=== PATIENT | female | born 1990 | race Caucasian/White ===

== ENCOUNTER 2022-10-23 01:39 | Day surgery (SDC) | payer OTHER, SELFPAY ==
[2022-10-14 15:14] VITALS: BMI 44.4
--- NOTE | 2022-10-14 15:18 | SUR.PREOP ---
Report to the Outpatient Waiting Room, entrance under the green pavilion located off [facility], at time _0630 on date _10/23/22 . Planned Procedure Time: . Time changes happen often and if your time is changed the preop area will call you the afternoon before. - You and your visitor will be asked to self-screen and do not enter if you have any COVID symptoms. - A mask is optional within the hospital at this time. Patients may have clear liquids (water, carbonated beverages, clear teas, apple juice) until 3 hours prior to surgery with a maximum of 20 ounces. - No food from midnight until time of surgery - Infants may have breast milk until 4 hours before surgery, formula 6 hours prior to surgery. - Children will be allowed to drink immediately following surgery. If applicable, please bring a bottle or sippy cup to assist with drinking. Juice, water, soda, and popsicles are readily available. For infants on formula, please bring formula the day of surgery. Pacifiers are allowed. Take the following medications with a SIP of water the morning of surgery: ____n/a DO NOT STOP ANY OF YOUR OTHER PRESCRIPTION MEDICATIONS PRIOR TO SURGERY ?EXCEPT THE FOLLOWING Medications to discontinue per physician ___n/a Date to take last dose__n/a Please no make-up, nail dominican, hairspray, perfume, deodorant, or body powder the day of surgery. No jewelry (including any body piercings) or valuables the day of surgery, leave them at home. Please take a shower or bath the night before, or the morning of, surgery with an antibacterial soap. Wear comfortable, loose fitting clothing. Children are encouraged to wear pajamas. - Jewelry must be removed prior to entering the operating room. Rings and piercings that are not removed may be cut off. - The hospital will not accept responsibility for valuables. - Please leave all valuables, including medications, at home the day of surgery. If you are going home after surgery, a licensed pick up truck driver must drive you home. - NO public transportation without another adult if you receive anesthesia. - We recommend that an adult stay with you for 24 hours following discharge. - We also recommend that you do not drive, make important decision, drink alcoholic beverages, or take any drugs that were not prescribed by your health care provider for at least 24 hours after your discharge time. For Pediatric surgeries, we recommend two adults accompany the child home. Follow any additional instructions given to you from your surgeon. If you or anyone in your household have experienced Covid symptoms in the past week, please notify your surgeon or the nurse liaison at the phone number below for possible testing. Telephone instructions given to marguerite smart and asked if any additional questions and then verbalized understanding. Patient advised to call surgeon office or pre surgery nurse liaison [phone] if any additional questions.
--- NOTE | 2022-10-21 16:27 | P.HP_ITS ---
H&P: HPI History of Present Illness Date/Time: 10/21/22 16:27 Chief Complaint: Pelvic pain and irregular excessive bleeding Narrative: Who is 32 year 0 admitted for a diagnostic laparoscopy/hysteroscopy/di latation curettage. Her complaints are irregular bleeding pelvic pain dyspareunia. She is in a same-sex marriage. She has had a blood workup that was negative. This was followed by ultrasound which was unremarkable. She will undergo laparoscopy/hysteroscopy/D& C. Risks and benefits reviewed including but not exclusive of , aspiration pneumonia, bleeding, transfusion, perforation injury to bowel, bladder, ureters, or other internal organs with need for laparotomy. She received the ACOG handout entitled laparoscopy/hysteroscopy/dilatation curettage respectively. She had all questions answered and asked to proceed [facility] Social History Social History Smoking status: Former smoker Tobacco type: cigarettes Smoking end date: 06/07/19 Additional smoking assessment comments: 1/2 ppd x 18 years cigarettes Alcohol intake: current Drinks per week: 1 Alcohol use details: socially Living arrangements: with family Spiritual care concerns: No Meds Home Medications and Allergies Home Medications Medication Instructions Recorded Confirmed Type No Home Medications 10/14/22 10/14/22 History Allergies Allergy/AdvReac Type Severity Reaction Status Date / Time No Known Allergies Allergy Verified 10/14/22 14:50 Exam Const: General: cooperative, healthy appearing, comfortable and overweight Orientation/consciousness: oriented to person, oriented to place and oriented to time HENMT: Head: normal to inspection Resp: Effort & Inspection: normal respiratory effort Cardio: Rate: regular rate Rhythm: regular rhythm Heart sounds: S1 normal heart sound present and S2 normal heart sound present GI: Inspection: normal to inspection and obesity Auscultation: normal bowel sounds : External Female Exam: normal external appearance Speculum Exam - Vagina: normal appearance of the vagina Speculum Exam - Cervix: normal appearance of the cervix Bimanual exam- vagina & uterus: normal palpation and Uterine tenderness Bimanual Exam- Adnexa, other: tender bilaterally Assessment and Plan Assessment and plan (1) Pelvic pain: Code(s): R10.2 - Pelvic and perineal pain Status: Acute (2) Irregular bleeding: Code(s): N92.6 - Irregular menstruation, unspecified Status: Acute Plan Laparoscopy/hysteroscopy/dilatation and curettage
--- NOTE | 2022-10-22 09:54 | WPDANESEPPF ---
Anes - Initial Pre Proc Eval Procedure: Operation Date: 10/23/22 08:30 Proposed Procedures p Diagnostic Laparoscopy, Hysteroscopy, Dilatation and Curettage - Jose Pollack MD Date/Time: 10/22/22 09:54 Surgeon: Jose Pollack MD Pre Op Diagnosis: pelvic pain, irreg bleeding Patient Data Age: 32 Gender: F Height: 1.8 m Weight: 144.54 kg Allergies Allergy/AdvReac Type Severity Reaction Status Date / Time No Known Allergies Allergy Verified 10/23/22 07:41 Home Medications Medication Instructions Recorded Confirmed Type hydrocodone 5 mg-acetaminophen 325 1 tablet PO Q4H PRN pain #20 tabs 10/23/22 Rx mg tablet Patient hx anesthesia problems: none Family hx anesthesia problems: none Results Review: All pre-operative results and documents have been reviewed as part of the pre-operative evaluation. [facility] Past Medical History Medical History (Updated 10/22/22 @ 09:57 by Amilcar Yost DO) Anxiety Bipolar disorder Depression Endometriosis Social History Social History Smoking status: Former smoker Tobacco type: cigarettes Smoking end date: 06/07/19 Additional smoking assessment comments: 1/2 ppd x 18 years cigarettes Alcohol intake: current Drinks per week: 1 Alcohol use details: socially Living arrangements: with family Spiritual care concerns: No Anes - Eval Final PreProcedure Day of Procedure 10/22/22 09:54 Patient weight: morbidly obese Heart: regular rate and rhythm Lungs: clear to auscultation Airway: Mallampati scale class 1 and special considerations (front top tooth chipped) Neurological: alert and oriented Last oral intake: >/= 8 hours ASA classification: III Emergent: no Anesthetic plan: proceed Anesthesia type and monitoring: general ETT and standard monitoring Results Review: All pre-operative results and documents have been reviewed as part of the pre-operative evaluation. Informed Consent: The patient's anesthetic plan and its attendant risks and benefits were discussed with the patient/family/POA. Questions were solicited and answers provided to the satisfaction of the patient/family/POA.
[2022-10-23] VITALS (7 sets, daily range): BP systolic 127–139; BP diastolic 75–100; PULSE 70–97; RESP 14–21; TEMP 36.1–36.4; O2SAT 96–100
--- NOTE | 2022-10-23 07:11 | WPDHPUPDATE1 ---
History and Physical Update Update Date/Time: 10/23/22 07:11 History and Physical has been reviewed, including an updated exam of the patient. There are NO changes in the patient's condition. Risks, benefits, and alternatives have been discussed and questions answered. Patient agrees to proceed with procedure.
[2022-10-23] MEDS: ACETAMINOPHEN 500 MG TABLET 1000 MG PO (07:18)
[2022-10-23] MEDS: LACTATED RINGERS 1,000 ML 30 ML IV CONT (07:31)
[2022-10-23 07:35] LABS: Hematocrit 40.5 % (37.0-47.0); Hemoglobin 12.7 g/dL (12.0-15.0)
--- NOTE | 2022-10-23 09:24 | P.OP_ITS ---
Procedure Note - Detailed Date of Procedure 10/23/22 Pre-op Diagnosis pelvic pain, irreg bleeding Post-op Diagnosis Other Procedure Performed laparoscopic destruction of endometriosis/hysteroscopy/ dilatation curettage Surgeon Jose Pollack MD Anesthesia General Indications since 32-year-old female with pelvic pain and irregular bleeding Findings on laparoscopy there powder burn blistered endometriosis on the posterior surface of the uterus and the uterosacral ligaments. Normal-appearing ovaries bilaterally. On hysteroscopy uterus sounded to 7cm thick irregular tissue was Description of Procedure patient was placed in dorsal lithotomy position. Under excellent general trach anesthesia weighted speculum placed posterior fornix vagina. Anterior lip of the cervix grasped with a single-tooth tenaculum. These were attached to be used later uterine manipulation. Bladder was emptied of clear urine. The weighted speculum was removed the gloves were changed. An infraumbilical incision made. Veress Veress needle passed in the abdomen. Abdomen filled with CO2 gas to 15mm Hg. 5mm trocar advanced under direct op is 8 visualization with the Optiview. No injury seen. [facility] and a suprapubic incision made. The above findings were seen. The monopolar cautery was placed at 35 w per 2nd and these were individually burned without difficulty. Irrigation undertaken to clear. No other abnormalities were seen. The instruments withdrawn after the gas removed from the abdomen. The abdomen filled was was closed with 4 Monocryl glue. Attention was then turned to the hysteroscopy. The weighted speculum was replaced. At the uterus sounded 8cm. Serial dilatation with fragmented out performed followed by passes the Ada system using normal saline as visualizing medium. Thick irregular endometrial tissue was seen but no evidence of polyps or anything otherwise. The uterus was scraped over 360? removing moderate amount of tissue. When a good grating sound was heard, the instruments removed all were accounted for she went to recovery in satisfactory condition. All sponge, needle, instrument counts were correct. There were no immediate complications Estimated Blood Loss 5 Drains No Packing No Pathology Yes Complications No immediate complications Condition Stable Disposition PACU
[2022-10-23] MEDS: ONDANSETRON INJ 4 MG/2 ML VIAL IV PUSH (09:32)
[2022-10-23] MEDS: KETOROLAC 15 MG/ML VIAL (*BKC) IV PUSH (09:45)
== END 2022-10-23 10:48 | disposition home or self-care (01) ==
PROVIDERS: Visit Provider Obstetrics & Gynecology
PROC: 0UDB8ZZ Extraction of Endometrium, Via Natural or Artificial Opening Endoscopic (ICD-10-PCS; CPT 58558; principal; 2022-10-23 08:30)
DX: N92.1 Excessive and frequent menstruation with irregular cycle (principal); R10.2 Pelvic and perineal pain; N80.00 Endometriosis of the uterus, unspecified; Z87.891 Personal history of nicotine dependence
CPT/HCPCS: 58558; 58662; 36415; 85014; 85018; 86850; 86900; 86901; 88305; A9270; J0330; J1100; J1885; J2250; J2405; J2704; J2710; J3010; J7030; J7120

== ENCOUNTER 2025-02-02 01:33 | Day surgery (SDC) | payer OTHER, SELFPAY ==
[2025-01-23 10:48] VITALS: BMI 43.9
--- NOTE | 2025-01-23 11:06 | PC.NURSE ---
Report to the Outpatient Waiting Room, entrance under the green pavilion located off [facility], at time _0600_ on date _02/02/25_. Planned Procedure Time: _0730__.? Time changes happen often and if your time is changed the preop area will call you the afternoon before. - You and your visitor will be asked to self-screen and do not enter if you have any COVID symptoms. Please call surgeon if you need to reschedule. - A mask is optional within the hospital at this time. Patients may have clear liquids (water, carbonated beverages, clear teas, apple juice) until 3 hours prior to surgery with a maximum of 20 ounces. - No food from midnight until time of surgery and no smoking, or chewing tobacco (or any form of nicotine). No chewing gum, candy or mints. Hold all vitamins and supplements for 3 days per anesthesiologist. Medications to discontinue per physician ___hold spironolactone AM of surgery____ Please no make-up, nail austrian, hairspray, perfume, deodorant, or body powder the day of surgery.? No jewelry (including any body piercings) or valuables the day of surgery, leave them at home.? Please take a shower or bath the night before, or the morning of, surgery with an antibacterial soap.? Wear comfortable, loose fitting clothing.? - Jewelry must be removed prior to entering the operating room.? Rings and piercings that are not removed may be cut off. - The hospital will not accept responsibility for valuables.? - Please leave all valuables, including medications, at home the day of surgery. If you are going home after surgery, a licensed local owner operator truck driver must drive you home.? - NO public transportation without another adult if you receive anesthesia. - We recommend that an adult stay with you for 24 hours following discharge. - We also recommend that you do not drive, make important decision, drink alcoholic beverages, or take any drugs that were not prescribed by your health care provider for at least 24 hours after your discharge time. Follow any additional instructions given to you from your surgeon. Telephone instructions given to __Estefany_ Patient advised to call surgeon office or pre surgery nurse liaison [phone] if any additional questions.
--- NOTE | 2025-01-30 12:56 | PM.IMHP ---
H&P: HPI History of Present Illness Date/Time: 01/30/25 12:56 Chief Complaint: Pelvic pain and history of endometriosis Narrative: 34-year-old female admitted for robotic hysterectomy bilateral salpingectomy secondary to bleeding pain and history of endometriosis. She has severe dyspareunia. She has tried multiple hormonal methods which have been unsuccessful and she refuses any further treatment in such manner. She will undergo robotic hysterectomy and bilateral salpingectomy. Risks and benefits including but not exclusive of , aspiration pneumonia, bleeding, transfusion, perforation injury to bowel, bladder, ureters, or other internal organs with need for laparotomy were all reviewed. She received the ACOG handout entitled hysterectomy as well as the Kellie handout. She had all questions answered. She asked to proceed. Review of Systems Review of Systems: All systems reviewed & are unremarkable except as noted in HPI and below PMFSH Past Medical History Medical History Depression Anxiety Bipolar disorder Endometriosis Social History Social History Smoking packs per day: 1 Smoking cigarettes per day: 20.0 Years smoked: 15 Smoking pack-years: 15.00 Smoking status: Former smoker Tobacco type: cigarettes Smoking end date: 06/07/19 Additional smoking assessment comments: 1/2 ppd x 18 years cigarettes Alcohol intake: current Drinks per week: 1 Alcohol use details: 1-2 times per month Substance use: never Substance use type: does not use Living arrangements: with family Spiritual care concerns: No Meds Home Medications and Allergies Home Medications ?Medication ?Instructions ?Recorded ?Confirmed ?Type spironolactone 50 mg tablet 50 mg PO DAILY acne 01/23/25 01/23/25 History Allergies Allergy/AdvReac Type Severity Reaction Status Date / Time No Known Allergies Allergy Verified 01/23/25 10:46 Exam Const: General: cooperative, healthy appearing and comfortable Nutritional Appearance: obese Orientation/consciousness: oriented to person, oriented to place and oriented to time HENMT: Head: normal to inspection Resp: Effort & Inspection: normal respiratory effort Cardio: Rate: regular rate Rhythm: regular rhythm Heart sounds: S1 normal heart sound present and S2 normal heart sound present GI: Inspection: normal to inspection : External Female Exam: normal external appearance Speculum Exam - Vagina: normal appearance of the vagina Speculum Exam - Cervix: normal appearance of the cervix Bimanual exam- vagina & uterus: enlarged and Uterine tenderness Bimanual Exam- Adnexa, other: normal adnexae Assessment and Plan Assessment and plan (1) Pelvic pain: Code(s): R10.2 - Pelvic and perineal pain Status: Acute (2) Irregular bleeding: Code(s): N92.6 - Irregular menstruation, unspecified Status: Acute Plan Proceed with robotic total vaginal hysterectomy and bilateral salpingectomy
[2025-02-02] VITALS (16 sets, daily range): BP systolic 119–147; BP diastolic 58–92; PULSE 60–104; RESP 16–24; TEMP 35.7–37.1; O2SAT 91–100
--- OUTSIDE RECORDS SUMMARY | 2025-02-02 01:37 | XMS_ITS | Encounter Summary ---
Author Organization [facility] Address [address] [place] [address] Care Team Providers Care Yard Inspector Name Role Phone Tee June MD Primary Care Provid er Encounter Details Date Type Department Care Team (Late st Contact Info) Description 12/16/2004 Outpatient Historical [facility] Childrens Surgery [address] [place] [id number] Christo Aleman Social History Tobacco Use Types Packs/Day Years Used Date Smoking Tobacco: Never Assessed Comments Unknown Sex and Gender Information Value Date Recorded Sex Assigned at Not on file Legal Sex Female 3:51 AM DIRECTOR 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
--- OUTSIDE RECORDS SUMMARY | 2025-02-02 01:37 | XMS_ITS | Encounter Summary ---
Author Organization [facility] Address [address] [place] [address] Attn: Epic Prelude ADT [place] [address] Care Team Providers Care Bevel Polisher Name Role Phone Tee June MD Primary Care Provid er Encounter Details Date Type Department Care Team (Late st Contact Info) Description 06/11/2006 Outpatient Historical Iraida Juárez MD [address] [place] [address] Acute Pharyngitis (Primary Dx) Social History Tobacco Use Types Packs/Day Years Used Date Smoking Tobacco: Never Assessed Comments Unknown Sex and Gender Information Value Date Recorded Sex Assigned at Not on file Legal 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
--- OUTSIDE RECORDS SUMMARY | 2025-02-02 01:37 | XMS_ITS | Encounter Summary ---
Author Organization [facility] Address [address] [facility] Attn: Epic Prelude ADT [place] [address] Care Team Providers Care Data Control Clerk Name Role Phone Tee June MD Primary Care Provid er Encounter Details Date Type Department Care Team (Late st Contact Info) Description 04/19/2001 Outpatient Historical Iraida Juárez MD [address] [place] [address] Social History Tobacco Use Types Packs/Day Years Used Date Smoking Tobacco: Never Assessed Comments Unknown Sex and Gender Information Value Date Recorded Sex Assigned at Not on file Legal Sex Female 3:51 AM JAILKEEPER Gender Identity Not on file Sexual Orientation Not on file documented as of this encounter Plan of Treatment Not on file documented as of this encounter Visit Diagnoses Not on filedocumented in this encounter Care Teams Data Control Clerk Relationship Specialty Start Date End Date Tee June MD PCP - General Internal Medicine 06/24/19 documented as of this encounter
--- OUTSIDE RECORDS SUMMARY | 2025-02-02 01:37 | XMS_ITS | Encounter Summary ---
Author Organization [facility] Address [address] [facility] Attn: [place] [address] Care Team Providers Care Welding Foreman Name Role Phone Tee June MD Primary Care Provid er Encounter Details Date Type Department Care Team (Late st Contact Info) Description 08/26/2005 Outpatient Historical Ronald Gardner MD [address] [phone] Social History Tobacco Use Types Packs/Day Years Used Date Smoking Tobacco: Never Assessed Comments Unknown Sex and Gender Information Value Date Recorded Sex Assigned at Not on file Legal Sex Female 3:51 AM SENSOR SPECIALIST Gender Identity Not on file Sexual Orientation Not on file documented as of this encounter Plan of Treatment Not on file documented as of this encounter Visit Diagnoses Not on filedocumented in this encounter Care Teams Welding Foreman Relationship Specialty Start Date End Date Tee June MD PCP - General Internal Medicine 06/24/19 documented as of this encounter
--- OUTSIDE RECORDS SUMMARY | 2025-02-02 01:37 | XMS_ITS | Encounter Summary ---
Author Organization [facility] Address [address] [facility] Attn: Epic Prelude ADT PA[place] [phone] Care Team Providers Care Machine Fur Cleaner Name Role Phone Tee June MD Primary Care Provid er Encounter Details Date Type Department Care Team (Late st Contact Info) Description 06/28/2002 Outpatient Historical Iraida Juárez MD [address] [place] [address] Social History Tobacco Use Types Packs/Day Years Used Date Smoking Tobacco: Never Assessed Comments Unknown Sex and Gender Information Value Date Recorded Sex Assigned at Not on file Legal 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
--- OUTSIDE RECORDS SUMMARY | 2025-02-02 01:37 | XMS_ITS | Encounter Summary ---
Author Organization [facility] Address [address] [facility] Attn: Epic Prelude ADT [place] [phone] Care Team Providers Care Business English Instructor Name Role Phone Tee June MD Primary Care Provid er Encounter Details Date Type Department Care Team (Late st Contact Info) Description 06/11/2006 Outpatient Historical Iraida Juárez MD [address] [place] [address] Social History Tobacco Use Types Packs/Day Years Used Date Smoking Tobacco: Never Assessed Comments Unknown Sex and Gender Information Value Date Recorded Sex Assigned at Not on file Legal Sex Female 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
--- OUTSIDE RECORDS SUMMARY | 2025-02-02 01:37 | XMS_ITS | Encounter Summary ---
Author Organization [facility] Address [address] [facility] Attn: Epic Prelude ADT [place] [phone] Care Team Providers Care Ems Educator Name Role Phone Tee June MD Primary Care Provid er Encounter Details Date Type Department Care Team (Late st Contact Info) Description 01/18/2001 Outpatient Historical Iraida Juárez MD [address] [place] [address] Social History Tobacco Use Types Packs/Day Years Used Date Smoking Tobacco: Never Assessed Comments Unknown Sex and Gender Information Value Date Recorded Sex Assigned at Not on file Legal Sex Female 3:51 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
--- OUTSIDE RECORDS SUMMARY | 2025-02-02 01:37 | XMS_ITS | Encounter Summary ---
Author Organization [facility] Address [address] [facility] Attn: Epic Prelude ADT PAWANLEEANNA LAINEZ [place] [address] Care Team Providers Care Assembler Adjuster Name Role Phone Tee June MD Primary Care Provid er Encounter Details Date Type Department Care Team (Late st Contact Info) Description 01/04/2001 Outpatient Historical Iraida Juárez MD [address] [place] [address] Social History Tobacco Use Types Packs/Day Years Used Date Smoking Tobacco: Never Assessed Comments Unknown Sex and Gender Information Value Date Recorded Sex Assigned at Not on file Legal Sex Female 3:51 AM RN INTEGRITY Gender Identity Not on file Sexual Orientation Not on file documented as of this encounter Plan of Treatment Not on file documented as of this encounter Visit Diagnoses Not on filedocumented in this encounter Care Teams Assembler Adjuster Relationship Specialty Start Date End Date Tee June MD PCP - General Internal Medicine 06/24/19 documented as of this encounter
--- OUTSIDE RECORDS SUMMARY | 2025-02-02 01:37 | XMS_ITS | Encounter Summary ---
Author Organization [facility] Address [address] [place] [address] Attn: [place] [address] Care Team Providers Care Aerospace Engineer Officer Armament Name Role Phone Tee June MD Primary Care Provid er Encounter Details Date Type Department Care Team (Late st Contact Info) Description 08/08/2003 Outpatient Historical Opal Das MD [address] [place] [address] Social History Tobacco Use Types Packs/Day Years Used Date Smoking Tobacco: Never Assessed Comments Unknown Sex and Gender Information Value Date Recorded Sex Assigned at Not on file Legal Sex Female 3:51 AM SALES PLANNING ANALYST Gender Identity Not on file Sexual Orientation Not on file documented as of this encounter Plan of Treatment Not on file documented as of this encounter Procedures Procedure Name Priority Date/Time Associated Diagnosis Comments CHG HEPATITIS A VACCINE PED ADOL IM 2 DOSE VFC 08/08/2003 12:00 AM SALES PLANNING ANALYST documented in this encounter Visit Diagnoses Not on filedocumented in this encounter Care Teams Aerospace Engineer Officer Armament Relationship Specialty Start Date End Date Tee June MD PCP - General Internal Medicine 06/24/19 documented as of this encounter
--- OUTSIDE RECORDS SUMMARY | 2025-02-02 01:37 | XMS_ITS | Encounter Summary ---
Author Organization [facility] Address [address] [place] [address] Attn: Epic Prelude ADT PAWANLEEANNA [place]INEZ [place] [address] Care Team Providers Care 911 Telecommunicator Name Role Phone Tee June MD Primary Care Provid er Encounter Details Date Type Department Care Team (Late st Contact Info) Description 04/24/2000 Outpatient Historical Alvin Diallo MD NO ADDRESS ON FILE Social History Tobacco Use Types Packs/Day Years Used Date Smoking Tobacco: Never Assessed Comments Unknown Sex and Gender Information Value Date Recorded Sex Assigned at Not on file Legal Sex Female 3:51 AM INVOICE CONTROL CLERK Gender Identity Not on file Sexual Orientation Not on file documented as of this encounter Plan of Treatment Not on file documented as of this encounter Visit Diagnoses Not on filedocumented in this encounter Care Teams 911 Telecommunicator Relationship Specialty Start Date End Date Tee June MD PCP - General Internal Medicine 06/24/19 documented as of this encounter
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
--- OUTSIDE RECORDS SUMMARY | 2025-02-02 01:37 | XMS_ITS | Encounter Summary ---
Author Organization [facility] Address [address] [place] [address] Attn: Epic Prelude ADT PAWANLEEANNA [place]INEZ [place] [address] Care Team Providers Care Ethylene Compressor Operator Name Role Phone Tee June MD Primary Care Provid er Encounter Details Date Type Department Care Team (Late st Contact Info) Description 02/11/2006 Outpatient Historical Iraida Juárez MD [address] [place] [address] Social History Tobacco Use Types Packs/Day Years Used Date Smoking Tobacco: Never Assessed Comments Unknown Sex and Gender Information Value Date Recorded Sex Assigned at Not on file Legal Sex Female 3:51 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
--- OUTSIDE RECORDS SUMMARY | 2025-02-02 01:37 | XMS_ITS | Clinical Summary ---
Author Organization [facility] Address [address] [place] [place] [address] Care Team Providers Care Box Truck Owner Operator Name Role Phone Adi Dowell MD Primary Care Provider Allergies No known active allergies Medications * This document contains information received from the source organization and may not represent a complete record from that organization. predniSONE (DELTASONE) 20 mg tabletIndication s:Subacute cough Take 1 tablet (20 mg) by mouth daily 5 tablet 08/13/2023 Active Active Problems Problem Noted Date Diagnosed Date Moderate episode of recurrent major depressive d isorder 02/14/2023 Assessment & Plan (02/14/2023 2:22 PM CDT): Symptoms improving with lifestyle changes. Denies SI/self-harm behaviors. Symptoms are often responsive to situational stressors. Notes some low mood d/t poor food choices. Has maintained boundaries with her brother Is not interested in medications. Remains focused on lifestyle changes and therapy. First therapy appointment with Katharina Patrick, Mar 01. Snoring 12/14/2022 Assessment & Plan (01/22/2023 7:18 PM CDT): Reports friends and spouse have told her she snores. Has not been evaluated for GANESH. Referral to sleep medicine. Has not scheduled appointment. Assessment & Plan (12/15/2022 5:37 PM CDT): Reports friends and spouse have told her she snores. Has not been evaluated for GANESH. Referral to sleep medicine. Chronic post-traumatic stress disorder (PTSD) Assessment & Plan (02/14/2023 2:22 PM CDT): Reports on going strained relationship with her mom and brother that impacts her mood. Notes continued negative self-talk. Continues to focus on lifestyle changes and is scheduled to begin therapy in February. Assessment & Plan (01/22/2023 7:17 PM CDT): Reports on going strained relationship with her mom and brother that impacts her mood. Notes continued negative self-talk. Continues to focus on lifestyle changes and is scheduled to begin therapy in February. Assessment & Plan (12/15/2022 5:21 PM CDT): Reports on going strained relationship with her mom that impacts her mood. Notes continued negative self-talk. Continues to focus on lifestyle changes and is scheduled to begin therapy in February. Assessment & Plan (11/20/2022 10:49 AM CDT): Has made several lifestyle changes and is setting goals. Working on establishing boundaries with her family Increasing awareness of her emotional/irritable response to external stressors, negative self-talk. PLAN: [facility] for [facility]BT Continue lifestyle changes. Consider medication if symptoms worsen Elevated LFTs 11/13/2022 Prediabetes 10/12/2022 Subclinical hypothyroidism 10/12/2022 Severe episode of recurrent major depressive disorder, without psychotic features 10/12/2022 Assessment & Plan (01/22/2023 7:17 PM CDT): Symptoms improving with lifestyle changes. Denies SI/self-harm behaviors. Symptoms are often responsive to situational stressors. Notes some low mood d/t poor food choices. Has maintained boundaries with her mom, is advocating for self in relationship with sister, establishing boundaries with brother. Ambivalence about these changes. Is not interested in medications. Remains focused on lifestyle changes and therapy. First therapy appointment with Katharina Patrick, Mar 01. Assessment & Plan (12/15/2022 5:33 PM CDT): Symptoms improving with lifestyle changes. Denies SI/self-harm behaviors. Symptoms are often responsive to situational stressors. Notes several weeks of good mood, good energy, and experiencing pleasure prior to interacting with her mom. Is not interested in medications. Remains focused on lifestyle changes and therapy. Assessment & Plan (11/20/2022 10:51 AM CDT): Symptoms improving with lifestyle changes. Denies SI/self-harm behaviors. PLAN: Continue lifestyle changes. Consider medication if symptoms worsen Assessment & Plan (11/05/2022 3:54 PM CDT): Meets criteria for PTSD. Reports current symptoms of lack of pleasure, low self-esteem, and emotional reactivity. She is not interested in medication at this time and does not have a good understanding of the role and function of medication. She is currently attending work, denies SI/self-harm behaviors, has reduced alcohol use, and is making healthy lifestyle changes. Discussed starting therapy, reviewed different modalities including CBT, DBT, and EMDR. Discussed continued effort towards lifestyle changes with goal to begin focusing on sleep hygiene. PLAN: Refer to [facility] for CBT Continue lifestyle changes. Consider medication if symptoms worsen Morbid obesity with body mass index of 40.0-49.9 03/11/2021 10/12/2022 Assessment & Plan (11/13/2022 4:55 PM CDT): now down 20lbs in 2 months with weight watchers. congratulated on success, encouraged continued efforts. discussed avoiding pitfalls/frustration, she set goal of 230 lbs. Discussed medications that can help with weight loss but she is pleased with her current progress and interested in going without it. Immunizations Immunization Administration Dates Next Due DTP 01/12/1992,02/08/1991,1990 ,1990 DTaP 08/25/1995, 2,02/08/1991,1990,0 1990 Hep A, Adult 02/11/2006,08/08/2003 Hep A, Pediatric 02/11/2006,08/08/2003 Hep B Vaccine 08/25/1995,03/03/1995,01/08/1995 Hep B, Unspecified 08/25/1995,03/03/1995, 995 HiB 12/04/1991,02/08/1991,1990 ,1990 Hib (HbOC) 12/04/1991,02/08/1991,1990 ,1990 IPV 08/25/1995,01/12/1992,1990 ,1990 Influenza, Unspecified 07/27/2022 MMR 08/25/1995,12/04/1991 Meningococcal MCV4P (Menactra) 02/20/2008 OPV 08/25/1995,01/12/1992,1990 ,1990 Td, adsorbed 01/11/2016,10/28/2004 Tdap 02/20/2008 Surgical History Surgery Date Site/Laterality Comments APPENDECTOMY N/A Medical History Medical History Date Comments Varicella Covid-19 07/08/2022 GERD (gastroesophageal reflux disease) 2years Alcohol abuse No longer abusing have in the nd st Anxiety late teens Migraines 4 years Menstrual problem 8years Family History Medical History Relation Name Comments Alcohol abuse Brother 1 Dylon Alcohol abuse Brother 2 Sp No Known Problems Brother 3 No Known Problems Brother 4 No Known Problems Brother 5 Alcohol abuse Father Tyron Depression Father Tyron Hyperlipidemia Maternal Grandfather Will Stroke Maternal Grandfather Will Hypertension Maternal Grandmother Beti Arthritis Mother Edith Diabetes Mother Edith Drug abuse Mother Edith Hypertension Mother Edith Obesity Mother Edith Heart attack Mother's Brother Chance No Known Problems Paternal Grandfather No Known Problems Paternal Grandmother Fibroids Sister 1 No Known Problems Sister 2 No Known Problems Sister 3 Breast cancer Neg Hx Colon cancer Neg Hx Relation Name Status Comments Brother 1 Dylon Alive Brother 2 Sp Alive Brother 3 Alive Brother 4 Alive Brother 5 Alive Father Tyron Alive Maternal Grandfather Will Alive Maternal Grandmother Beti Alive Mother Edith Alive Mother's Brother Chance Paternal Grandfather Paternal Grandmother Sister 1 Alive Sister 2 Alive Sister 3 Alive Social History Tobacco Use Types Packs/Day Years Used Date Smoking Tobacco: Former Cigarettes 0.4 18 0 06/07/2000 - 06/07/2018 Vaping Smokeless Tobacco: Never PHQ-2 Answer Date Recorded PHQ-2 Total Score (If total score is 3 or more points, staff should administer the PHQ-9) 4 10/12/2022 Personal Safety Answer Date Recorded Getting School Help Needed Not on file 05/21 Comments Unknown Sex and Gender Information Value Date Recorded Sex Assigned at Not on file Legal Sex Female 4:45 PM LEVER TENDER Gender Identity Not on file Sexual Orientation Not on file 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 Not on file Not on file Obstetrics History Last Filed Vital Signs Vital Sign Reading Time Taken Comments Blood Pressure 122/78 02/12/2023 1:17 PM CDT Pulse 84 02/12/2023 1:17 PM CDT Temperature 36.8 C (98.2 F) 11/13/2022 12:58 PM CDT Respiratory Rate - - Oxygen Saturation 99% 11/13/2022 12:58 PM CDT Inhaled Oxygen Concentration - - Weight 136.1 kg (300 lb) 02/12/2023 1:17 PM CDT Height 180.3 cm (5' 10.98) 02/12/2023 1:17 PM C DT Body Mass Index 41.86 02/12/2023 1:17 PM CDT Plan of Treatment Health Maintenance Due Date Last Done Comments Hepatitis C Screening 1990 HPV Vaccines (1 - 3-dose SCDM series) 2017 Cervical Cancer Screening 02/20/2022 02/20/2021 Depression Screening 10/13/2023 10/12/2022, 10/13/19 Regular Well Visit/Exam 18-64 10/13/2023 10/12/2022, 10/12/2022 Covid-19 Vaccine ( season) 2024 09/11/2020 Influenza Vaccine (#1) 2025 07/27/2022 DTaP/Tdap/Td Vaccine (8 - Td or Tdap) 01/10/2026 01/11/2016, 02/20/2008, 10/28/2004, Additional history exists Hepatitis B Screening Completed 08/25/1995 , 08/25/1995, 03/03/1995, Additional history exists Pneumococcal vaccine <65 Aged Out No longer eligible based on patient's age to complete this topic Procedures Procedure Name Priority Date/Time Associated Diagnosis Comments PAP SMEAR WITH HPV Routine 02/20/2021 from Last 3 Months or Most Recently Relevant to Health Maintenance Results * PAP SMEAR WITH HPV (02/20/2021) HM Pap smear Normal us Historical Provider MD HEALTH MAINTENANCE Final Result from Last 3 Months or Most Recently Relevant to Health Maintenance Insurance [address] [place] [id number] [employer] [address] [place] [id number] [employer] [address] [place] [id number] Care Teams Box Truck Owner Operator Relationship Specialty Start Date End Date Adi Dowell MD [address] [address] PCP - General Internal Medicine 10/01/22
--- OUTSIDE RECORDS SUMMARY | 2025-02-02 01:37 | XMS_ITS | Encounter Summary ---
Author Organization Car reviews [facility] Address [address] [place] [address] Care Team Providers Care Tin Roller Hot Mill Name Role Phone Tee June MD Primary Care Provid er Encounter Details Date Type Department Care Team (Latest Contact Info) Description 12/16/2004 Inpatient Historical HIS PATIENT IN A BED Christo Aleman MD [address] [facility] [address] [place] [address] ABSCESS OF APPENDIX (Primary Dx) Social History Tobacco Use Types Packs/Day Years Used Date Smoking Tobacco: Never Assessed Comments Unknown Sex and Gender Information Value Date Recorded Sex Assigned at Not on file Legal 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 Gender Identity Not on file Sexual Orientation Not on file documented as of this encounter Plan of Treatment Not on file documented as of this encounter Procedures Procedure Name Priority Date/Time Associated Diagnosis Comments CBC WITH DIFFERENTIAL Routine 12/20/2004 9:21 AM CDT CBC WITH DIFFERENTIAL Routine 12/20/2004 9:21 AM CDT CBC WITH DIFFERENTIAL Routine 12/20/2004 9:21 AM CDT BASIC METABOLIC PANEL Routine 12/20/2004 9:21 AM CDT CBC WITH DIFFERENTIAL Routine 12/19/2004 11:00 AM CDT CBC WITH DIFFERENTIAL Routine 12/19/2004 11:00 AM CDT GENTAMICIN LEVEL PEAK Routine 12/18/2004 7:00 AM CDT GENTAMICIN LEVEL TROUGH Routine 12/18/2004 5:45 AM CDT URINALYSIS W/REFLEX MICROSCOPIC Routine 12/16/2004 6:52 PM CDT CBC WITH DIFFERENTIAL Routine 12/16/2004 5:31 PM CDT CBC WITH DIFFERENTIAL Routine 12/16/2004 5:31 PM CDT HCG QUANTITATIVE, BLOOD Routine 12/16/2004 5:31 PM CDT LIPASE Routine 12/16/2004 5:31 PM CDT AMYLASE Routine 12/16/2004 5:31 PM CDT documented in this encounter Results * (ABNORMAL) BASIC METABOLIC PANEL (12/20/2004 9:21 AM CDT) GLUCOSE 104 60 - 110 mg/dL INTERFACE SYSTEM CREATININE 0.5 0.4 - 1.2 mg/dL INTERFACE SYSTEM CALCIUM 8.9 8.4 - 10.2 mg/dL INTERFACE SYSTEM BUN 7 6 - 20 mg/dL INTERFACE SYSTEM SODIUM 135 135 - 145 mmol/L INTERFACE SYSTEM POTASSIUM 3.3(L) 3.5 - 4.9 mmol/L INTERFACE SYSTEM CHLORIDE 98 96 - 108 mmol/L INTERFACE SYSTEM CO2 26 22 - 30 mmol/L INTERFACE SYSTEM 12/20/2004 9:21 AM CDT us Christo Aleman MD CHEMISTRY ORDERABLES Final Res ult INTERFACE SYSTEM Refer to clinic/hospital department * (ABNORMAL) CBC WITH DIFFERENTIAL (12/20/2004 9:21 AM CDT) NEUTROPHIL ABSOLUTE 4.12 K/uL INTERFACE SYSTEM LYMPHOCYTE ABSOLUTE 0.49 K/uL INTERFACE SYSTEM MONOCYTE ABSOLUTE 0.20 K/uL IN TERFACE SYSTEM EOSINOPHIL ABSOLUTE 0.10 K/uL INTERFACE SYSTEM BASOPHILS ABSOLUTE 0.00 K/uL INTERFACE SYSTEM NEUTROPHILS, SEG 81(H) 36 - 74 % INT ERFACE SYSTEM BANDS 3 0 - 4 % INTERFACE SYSTEM LYMPHOCYTES 9(L) 18 - 53 % INTERFAC E SYSTEM MONOCYTES 4 2 - 13 % INTERFACE SYSTEM EOSINOPHILS 2 2 - 12 % INTERFAC E SYSTEM BASOPHILS 0 0 - 3 % INTERFACE SYSTEM ATYPICAL LYMPHOCYTE 1 0 - 5 % INTERFACE SYSTEM PLATELET EST. Normal Normal INTERF PASCALE SYSTEM ANISOCYTOSIS Slight INTERFA CE SYSTEM 12/20/2004 9:21 AM CDT Christo Aleman MD HEMATOLOGY ORDERABLES Final Re sult Performing Organization Address [facility] de Phone Number INTERFACE SYSTEM Refer to clinic/hospital department * CBC WITH DIFFERENTIAL (12/20/2004 9:21 AM CDT) NRBC 0 <=0 /100 WBC INTERFACE SYSTEM 12/20/2004 9:21 AM CDT Christo Aleman MD HEMATOLOGY ORDERABLES Final Re sult Performing Organization Address [facility] de Phone Number INTERFACE SYSTEM Refer to clinic/hospital department * (ABNORMAL) CBC WITH DIFFERENTIAL (12/20/2004 9:21 AM CDT) WBC 4.9 4.0 - 9.8 K/uL INTERFACE SYSTEM RBC 3.97 3.90 - 4.90 M/uL INTERFACE SYSTEM HEMOGLOBIN 11.4(L) 11.8 - 14.8 g/dL INTERFACE SYSTEM HEMATOCRIT 33.7(L) 35.5 - 44.0 % INTERFACE SYSTEM MCV 84.9 82.0 - 99.0 fL INTERFACE SYSTEM MCH 28.7 27.2 - 32.6 pg INTERFACE SYSTEM MCHC 33.8 31.5 - 35.5 % INTERFACE SYSTEM RDW 14.1 11.5 - 14.5 % INTERFACE SYSTEM RDW-STDEV 44.1 37.1 - 48.7 fL INTERFACE SYSTEM PLATELETS 234 140 - 350 K/uL INTERFACE SYSTEM MPV 9.9 9.3 - 12.4 fL INTERFACE SYSTEM 12/20/2004 9:21 AM CDT Christo Aleman MD HEMATOLOGY ORDERABLES Final Re sult Performing Organization Address [facility] de Phone Number INTERFACE SYSTEM Refer to clinic/hospital department * (ABNORMAL) CBC WITH DIFFERENTIAL (12/19/2004 11:00 AM CDT) NEUTROPHILS 79(H) 36 - 74 % INTERFAC E SYSTEM LYMPHOCYTES 11(L) 18 - 53 % INTERFAC E SYSTEM MONOCYTES 8 2 - 13 % INTERFACE SYSTEM EOSINOPHILS 2 2 - 12 % INTERFAC E SYSTEM BASOPHILS 0 0 - 3 % INTERFACE SYSTEM NEUTROPHIL ABSOLUTE 4.39 K/uL INTERFACE SYSTEM LYMPHOCYTE ABSOLUTE 0.63 K/uL INTERFACE SYSTEM MONOCYTE ABSOLUTE 0.45 K/uL INTERFACE SYSTEM EOSINOPHIL ABSOLUTE 0.09 K/uL INTERFACE SYSTEM BASOPHILS ABSOLUTE 0.01 K/uL INTERFACE SYSTEM 12/19/2004 11:0 0 AM CDT Christo Aleman MD HEMATOLOGY ORDERABLES Final Re sult Performing Organization Address [facility] de Phone Number INTERFACE SYSTEM Refer to clinic/hospital department * (ABNORMAL) CBC WITH DIFFERENTIAL (12/19/2004 11:00 AM CDT) WBC 5.6 4.0 - 9.8 K/uL INTERFACE SYSTEM RBC 4.12 3.90 - 4.90 M/uL INTERFACE SYSTEM HEMOGLOBIN 11.5(L) 11.8 - 14.8 g/dL INTERFACE SYSTEM HEMATOCRIT 35.1(L) 35.5 - 44.0 % INTERFACE SYSTEM MCV 85.2 82.0 - 99.0 fL INTERFACE SYSTEM MCH 27.9 27.2 - 32.6 pg INTERFACE SYSTEM MCHC 32.8 31.5 - 35.5 % INTERFACE SYSTEM RDW 14.1 11.5 - 14.5 % INTERFACE SYSTEM RDW-STDEV 44.7 37.1 - 48.7 fL INTERFACE SYSTEM PLATELETS 233 140 - 350 K/uL INTERFACE SYSTEM MPV 10.1 9.3 - 12.4 fL INTERFACE SYSTEM 12/19/2004 11:0 0 AM CDT Christo Aleman MD HEMATOLOGY ORDERABLES Final Re sult Performing Organization Address [facility] Phone Number INTERFACE SYSTEM Refer to clinic/hospital department * GENTAMICIN LEVEL PEAK (12/18/2004 7:00 AM CDT) GENTAMICIN, PEAK 8.1 6.0 - 10.0 ug/mL INTERFACE SYSTEM Comment:Gentamicin Peak Toxi c Level= >12.0 ug/mL 12/18/2004 7:00 AM CDT Christo Aleman MD CHEMISTRY ORDERABLES Final Res ult Performing Organization Address [facility] Phone Number INTERFACE SYSTEM Refer to clinic/hospital department * GENTAMICIN LEVEL TROUGH (12/18/2004 5:45 AM CDT) GENTAMICIN, TROUGH 0.9 0.0 - 2.0 ug/mL INTERFACE SYSTEM Comment:Gentamicin Trough To xic Level = > 2.0 ug/mL 12/18/2004 5:45 AM CDT Christo Aleman MD CHEMISTRY ORDERABLES Final Res ult Performing Organization Address [facility] Phone Number INTERFACE SYSTEM Refer to clinic/hospital department * URINALYSIS (12/16/2004 6:52 PM CDT) COLOR UA Colorless INTERFACE SYSTEM CLARITY UA Clear Clear INTERFACE SYSTEM SPECIFIC GRAVITY UA 1.015 1.001 - 1.035 INTERFACE SYSTEM PH UA 6.0 5.0 - 8.0 INTERFACE SYSTEM LEUKOCYTE ESTERASE UA Negative Negative INTERFACE SYSTEM NITRITE UA Negative Negative INTERFACE SYSTEM PROTEIN UA Negative Negative INTERFACE SYSTEM GLUCOSE UA Negative Negative INTERFACE SYSTEM KETONES UA Negative Negative INTERFACE SYSTEM UROBILINOGEN UA <1 <1 mg/dL INTE RFACE SYSTEM Comment: Effective 11/19/04, Urobilinogen will be reported in mg/dL resulting in a n increased sensitivity at lower urobilinogen levels. Previously, results were reported in Zoey unit(EU)/dL. 1+ results previously reported as 1 EU/dL (normal) will become 2 mg/dL (abnormal). BILIRUBIN UA Negative Negative INTERFA CE SYSTEM BLOOD UA Negative Negative INTERFACE SYSTEM 12/16/2004 6:5 2 PM CDT Maureen Huerta MD URINE ORDERABLES Final Result Performing Organization Address [facility] Phone Number INTERFACE SYSTEM Refer to clinic/hospital department * (ABNORMAL) CBC WITH DIFFERENTIAL (12/16/2004 5:31 PM CDT) NEUTROPHILS 94(H) 36 - 74 % INTERFAC E SYSTEM LYMPHOCYTES 3(L) 18 - 53 % INTERFAC E SYSTEM MONOCYTES 3 2 - 13 % INTERFACE SYSTEM EOSINOPHILS 0(L) 2 - 12 % INTERFAC E SYSTEM BASOPHILS 0 0 - 3 % INTERFACE SYSTEM NEUTROPHIL ABSOLUTE 11.68 K/uL INTERFACE SYSTEM LYMPHOCYTE ABSOLUTE 0.39 K/uL INTERFACE SYSTEM MONOCYTE ABSOLUTE 0.34 K/uL INTERFACE SYSTEM EOSINOPHIL ABSOLUTE 0.00 K/uL INTERFACE SYSTEM BASOPHILS ABSOLUTE 0.01 K/uL INTERFACE SYSTEM 12/16/2004 5:31 PM CDT Result [facility] Maureen Huerta MD HEMATOLOGY ORDERABLES Final R esult Performing Organization Address [facility] Phone Number INTERFACE SYSTEM Refer to clinic/hospital department * (ABNORMAL) CBC WITH DIFFERENTIAL (12/16/2004 5:31 PM CDT) WBC 12.4(H) 4.0 - 9.8 K/uL INTERFACE SYSTEM RBC 4.74 3.90 - 4.90 M/uL INTERFACE SYSTEM HEMOGLOBIN 13.7 11.8 - 14.8 g/dL INTERFACE SYSTEM HEMATOCRIT 40.4 35.5 - 44.0 % INTERFACE SYSTEM MCV 85.2 82.0 - 99.0 fL INTERFACE SYSTEM MCH 28.9 27.2 - 32.6 pg INTERFACE SYSTEM MCHC 33.9 31.5 - 35.5 % INTERFACE SYSTEM RDW 13.6 11.5 - 14.5 % INTERFACE SYSTEM RDW-STDEV 42.7 37.1 - 48.7 fL INTERFACE SYSTEM PLATELETS 251 140 - 350 K/uL INTERFACE SYSTEM MPV 10.6 9.3 - 12.4 fL INTERFACE SYSTEM 12/16/2004 5:31 PM CDT Result [facility] Maureen Huerta MD HEMATOLOGY ORDERABLES Final R esult Performing Organization Address City/[facility]/ZIP Co de Phone Number INTERFACE SYSTEM Refer to clinic/hospital department * HCG QUANTITATIVE, BLOOD (12/16/2004 5:31 PM CDT) HCG QUANT, BLOOD <5 0 - 5 mIU/mL INTERFACE SYSTEM Comment: Result of 5 - 25 mIU/mL is indeterminant for , repeat of test recommemded in 48 hours. Reference Range: Gestational Age: 3 Weeks 5.8 - 71.2 mIU/mL 4 Weeks 9.5 - 750 mIU/mL 5 Weeks 217 - 7138 mIU/mL 6 Weeks 158 - 31,795 mIU/mL 7 Weeks 3697 - 163,563 mIU/mL 8 Weeks 32,065 - 149,571 mIU/mL 9 Weeks 63,803 - 151,410 mIU/mL 10 Weeks 46,509 - 186,977 mIU/mL 12 Weeks 27,832 - 210,612 mIU/mL 14 Weeks 13,950 - 62,530 mIU/mL 15 Weeks 12,039 - 70,971 mIU/mL 16 Weeks 9040 - 56,451 mIU/mL 17 Weeks 8175 - 55,868 mIU/mL 18 Weeks 8099 - 58,176 mIU/mL Heterophile antibodies and other interfering substances in the serum of some patients may cause a false-positive result in this assay. Before making a diagnosis of malignancy or ectopic ,the result of thi s test should be confirmed with a urine HCG test and correlated with other clinical evidence. Results called to peter at 12/16/2004 6:14 PM and read back verified. 12/16/2004 5:31 PM CDT us Maureen Huerta MD CHEMISTRY ORDERABLES Final Re sult INTERFACE SYSTEM Refer to clinic/hospital department * (ABNORMAL) LIPASE (12/16/2004 5:31 PM CDT) LIPASE 12(L) 13 - 60 U/L INTERFAC E SYSTEM 12/16/2004 5:31 PM CDT Maureen Huerta MD CHEMISTRY ORDERABLES Final Re sult Performing Organization Address City/[facility] de Phone Number INTERFACE SYSTEM Refer to clinic/hospital department * AMYLASE (12/16/2004 5:31 PM CDT) AMYLASE 31 28 - 100 U/L INTERFACE SYSTEM 12/16/2004 5:31 PM CDT Maureen Huerta MD CHEMISTRY ORDERABLES Final Re sult Performing Organization Address [facility] Phone Number INTERFACE SYSTEM Refer to clinic/hospital department documented in this encounter Visit Diagnoses Diagnosis Acute appendicitis with peritoneal abscess- Primary documented in this encounter Care Teams Tin [employer]ler [employer] Mill Relationship Specialty Start Date End Date Tee June MD PCP - General Internal Medicine 06/24/19 documented as of this encounter
--- OUTSIDE RECORDS SUMMARY | 2025-02-02 01:37 | XMS_ITS | Encounter Summary ---
Author Organization [facility] Address 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
--- OUTSIDE RECORDS SUMMARY | 2025-02-02 01:37 | XMS_ITS | Encounter Summary ---
Author Organization [facility] Address [address] [place] [address] Attn: Epic Prelude ADT [place] [address] Care Team Providers Care Cold Reduction Roller Name Role Phone Tee June MD Primary Care Provid er Encounter Details Date Type Department Care Team (Late st Contact Info) Description 10/28/2004 Outpatient Historical Iraida Juárez MD [address] [place] [address] Social History Tobacco Use Types Packs/Day Years Used Date Smoking Tobacco: Never Assessed Comments Unknown Sex and Gender Information Value Date Recorded Sex Assigned at Not on file 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
--- OUTSIDE RECORDS SUMMARY | 2025-02-02 01:37 | XMS_ITS | Encounter Summary ---
Author Organization [facility] Address [address] [facility] Attn: Epic Prelude ADT [place] [address] Care Team Providers Care System Controller Name Role Phone Tee June MD Primary Care Provid er Encounter Details Date Type Department Care Team (Late st Contact Info) Description 12/16/2004 Outpatient Historical Iraida Juárez MD [address] [place] [address] Social History Tobacco Use Types Packs/Day Years Used Date Smoking Tobacco: Never Assessed Comments Unknown Sex and Gender Information Value Date Recorded Sex Assigned at Not on file 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
--- OUTSIDE RECORDS SUMMARY | 2025-02-02 01:37 | XMS_ITS | Patient Health Record ---
Author Organization [facility] Address [address] [place] [address] Support Name Relationship Address Phone DYLON GONZALEZ Emergency Contact [address] [place] [address] [place] [address] LENNY NYE Guarantor Unknown [phone] Reason For Referral No Information Medications Medication SIG (Take, Route, Fr equency, Duration) Notes Start Date End Date Status Omeprazole 20 MG 1 capsule Orally Once a day Active NexIUM 40 MG 1 capsule Orally Onc e a day; Duration: 30 day(s) 02/12/2014 Active Social History Tobacco Use: Social History Observation Description Date Details (start date - stop date) Former Smoker NA - NA Tobacco Use/Smoking Question Answer Notes Are you a former smoker Problems Problem Type SNOMED Code ICD Code Onset Dates Problem Status W/U Status Risk Notes Problem Disorder of joint of ankle and/or foot (866460191) Other specified arthropathy, 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) Active confirmed Problem Verruca vulgaris (04977967) Viral wart, unspecified (B07.9) Active confirmed Problem Candidal vulvovaginitis (12548106) Candidiasis of vulva and vagina (B37.3) Active confirmed Problem Gastro-esophageal reflux disease without esophagitis (003611455) Gastro-esophage al reflux disease without esophagitis (K21.9) Active confirmed Problem Body mass index 40+ - severely obese (681851228) Body mass index (BMI) 40.0-44.9, adult (Z68.41) Active confirmed Plan Of Treatment Pending Test Test Name Order Date Urinalysis, Complete 02/12/2014 CBC With Differential/Platelet 4 Stool Culture 02/12/2014 Comp. Metabolic Panel (14) 02/12/2014 Insurance Providers Payer Name Payer Address Payer Phone Subscriber Number Group Number Insured Name Patient Relationship to Insured Coverage Start Date Coverage End Date [facility] [address] [address] [place] [address] [id number] LENNY NYE Self - patient is the insured Medical (General) History Medical History History ICD Code Gastro-esophageal reflux disease without esophagitis Gastro-esophageal reflux disease without esophagitis Candidiasis of vulva and vagina Viral wart, unspecified Surgical History Surgery Date(Month/Year) appendectomy
--- NOTE | 2025-02-02 06:44 | WPDANESEPPF ---
Anes - Initial Pre Proc Eval Procedure: Operation Date: 02/02/25 07:30 Proposed Procedures p Robotic Assisted Total Vaginal Hysterectomy with Bilateral Salpingectomy - Jose Pollack MD Date/Time: 02/02/25 06:44 Surgeon: Jose Pollack MD Pre Op Diagnosis: pain, endometriosis dyspareunia Patient Data Age: 34 Gender: F Height: 1.83 m Weight: 147 kg Allergies Allergy/AdvReac Type Severity Reaction Status Date / Time No Known Allergies Allergy Verified 02/02/25 06:31 Home Medications ?Medication ?Instructions ?Recorded ?Confirmed ?Type spironolactone 50 mg tablet 50 mg PO DAILY acne 01/23/25 02/02/25 History Patient hx anesthesia problems: none Family hx anesthesia problems: none Results Review: All pre-operative results and documents have been reviewed as part of the pre-operative evaluation. [facility] Past Medical History Medical History Depression Anxiety Bipolar disorder Endometriosis Social History Social History Smoking packs per day: 1 Smoking cigarettes per day: 20.0 Years smoked: 15 Smoking pack-years: 15.00 Smoking status: Former smoker Tobacco type: cigarettes Smoking end date: 06/07/19 Additional smoking assessment comments: 1/2 ppd x 18 years cigarettes Alcohol intake: current Drinks per week: 1 Alcohol use details: 1-2 times per month Substance use: never Substance use type: does not use Living arrangements: with family Spiritual care concerns: No Anes - Eval Final PreProcedure Day of Procedure 02/02/25 06:44 Patient weight: morbidly obese Heart: regular rate and rhythm Lungs: decreased breath sounds Airway: Mallampati scale class II Neurological: alert and oriented Last oral intake: >/= 8 hours ASA classification: III Emergent: no Anesthetic plan: proceed Anesthesia type and monitoring: general ETT and standard monitoring Results Review: All pre-operative results and documents have been reviewed as part of the pre-operative evaluation. Informed Consent: The patient's anesthetic plan and its attendant risks and benefits were discussed with the patient/family/POA. Questions were solicited and answers provided to the satisfaction of the patient/family/POA.
[2025-02-02] MEDS: ACETAMINOPHEN 500 MG TABLET 1000 MG PO ×3 (06:45→18:43)
--- NOTE | 2025-02-02 06:47 | WPDHPUPDATE1 ---
History and Physical Update Update Date/Time: 02/02/25 06:47 History and Physical has been reviewed, including an updated exam of the patient. There are NO changes in the patient's condition. Risks, benefits, and alternatives have been discussed and questions answered. Patient agrees to proceed with procedure.
[2025-02-02] MEDS: LACTATED RINGERS 1,000 ML 30 ML IV CONT ×2 (06:50→08:54)
[2025-02-02] MEDS: KETOROLAC 15 MG/ML VIAL (*BKC) IV PUSH (07:00)
[2025-02-02 07:01] LABS: Hematocrit 39.6 % (37.0-47.0); Hemoglobin 12.1 g/dL (12.0-15.0); Immature Granulocyte Percent A 0.7 % (0-0.5); Lymphocytes Absolute Auto 1.81 K/mm3 (0.9-3.2); Mean Corpuscular HGB Conc 30.6 g/dl (32-36); Mean Corpuscular Hemoglobin 24.7 pg (26-34); Mean Corpuscular Volume 81.0 fl (80-100); Nucleated Red Blood Cells Absolute Auto 0.000 K/mm3 (0.0-0.012); Nucleated Red Blood Cells Perc 0.0 % (0.0-0.2); Platelet Count Result 305 k/mm3 (150-375); Red Blood Count 4.89 M/mm3 (4.2-5.4); White Blood Count 7.3 K/mm3 (4.5-10.0)
[2025-02-02 07:26] LABS: BEDSIDEPREGUCG Negative (Negative)
[2025-02-02] MEDS: ceFAZolin 3 GM/D5W 100 ML 100 ML IVPB (07:26)
--- NOTE | 2025-02-02 08:05 | S_PTH ---
PATIENT: Estefany Curtis LOC: [facility] U#:[id number] AGE/SX: 34/F ROOM: RE02/02/[address]: Jose Pollack MD : 1990 BED: DIS: 02/03/2025 SPEC #: [id number] RECD: 02/02/25 10:40 STATUS: ADRI REQ #: [id number] FRANCI: 02/02/25 08:[address]: Jose Spears DEPT: [facility] Surgical RECD BY: Meggan Chávez Tissues: A - Uterus Procedures: Hematoxylin and Eosin Stain Gross and Microscopic Level 5
--- NOTE | 2025-02-02 08:27 | P.OP_ITS ---
Procedure Note - Detailed Date of Procedure 02/02/25 Pre-op Diagnosis pain, endometriosis dyspareunia Post-op Diagnosis Same Procedure Performed Robotic total vaginal hysterectomy bilateral salpingectomy and destruction of endometriosis Surgeon Jose Pollack MD Anesthesia General Indications 34-year-old female with intractable pelvic pain Findings Normal-appearing ovaries tubes. Endometriosis along right sidewall Description of Procedure The patient was prepped draped in the normal sterile fashion placed in the dorsal lithotomy position. Excellent general trach anesthesia weighted speculum placed posterior anterior lip of the cervix was then grasped with a single-tooth tenaculum uterus sounded to 7cm. Serial dilatation with fragmented dilators performed followed by passage of the 6. BELKYS 2. 0.5 cold cup. The weighted speculum the single-tooth removed. A 16 Haitian catheter was placed in the bladder drained of clear urine. The gloves were changed. A supraumbilical incision made the Veress needle passed in the abdomen. Abdomen filled with CO2 gas [id number]. The 8mm trocar was advanced the abdomen. Downside visualized no injury seen. Patient placed in 19? Trendelenburg and right left lateral quadrant incision made. The 8mm trocars advanced under direct visualization assuring no injury. Right upper quadrant incision made the 8mm trocar advanced under direct visualization again assuring no injury. The robot was docked. Attention was turned to the console. The left round ligament grasped, burned, cut. Anterior bladder flap was formed by sharply dissecting the peritoneum and retracting this for caudally away from the cervix uterus the opposite round ligament which was clamped, burned, cut. Next the fallopian tube was sharply dissected away from the ovarian complex on the left and left attached at its uterine origin. In similar fashion on the right. The fallopian tube was sharply dissected away from the ovarian complex and left attached to its uterine, origin. The utero-ovarian ligament on the left was skeletonized to conserve the left ovary this was clamped, burned, cut this was brought to level of previous cut right a similar fashion on the right conserving the right ovary, the utero-ovarian ligament was clamped, burned, cut and brought to level of previously cut round ligament. The cardinal broad ligaments on the left were then serially skeletonized clamping burning cutting and hugging the cervix uterus until the uterine vessels could be seen on the left these were large and tortuous and individually clamped, burned, cut. In similar fashion on the right the cardinal broad ligaments were serially skeletonized clamping burning cutting and hugging the cervix uterus until the large uterine vessels could be seen on the right these were individually clamped, burned, cut. As a colpotomy incision was made the cervix uterus and tubes removed through the vagina. Small areas of minimal endometriosis seen along the right lateral sidewall these were sharply burned with the scissors. The vagina was then closed with continuous running 0V lock from lateral edge to lateral edge back to the midline. Irrigation undertaken until clear and [place] term placed on raw surface areas. QBL was 25cc. Hemostasis was assured the robot was undocked. The gas removed from the abdomen. The trocars removed the incisions closed with 4-0 Monocryl and glue. The patient was awakened went to recovery in satisfactory condition. All sponge, needle, instrument counts were correct. There were no immediate complications Estimated Blood Loss 25 Drains No Packing No Pathology Yes Complications No immediate complications Condition Stable Disposition PACU
--- NOTE | 2025-02-02 08:32 | P.DS_ITS ---
DS: Admitting Diagnosis Discharge Date 02/03/2025 Admitting Diagnosis Endometriosis/pelvic pain DS: Discharge Diagnosis Discharge Diagnosis (1) Pelvic pain: Code(s): R10.2 - Pelvic and perineal pain Status: Acute (2) Endometriosis: Code(s): N80.9 - Endometriosis, unspecified Status: Acute (3) Irregular bleeding: Code(s): N92.6 - Irregular menstruation, unspecified Status: Acute DS: Summary Hospital Course Reason for hospitalization: The patient underwent robotic total vaginectomy bilateral salpingectomy and destruction of endometriosis on 02/02/2025. Hospital Course: Patient's hospital course unremarkable. She remained afebrile. She was up, voiding without difficulty, eating regular diet, ambulating, and generally without complaints. Time Spent with Patient Time attestation: Total time spent providing and/or coordinating discharge services: Exam Const: General: cooperative, healthy appearing and comfortable Nutritional Appearance: obese Orientation/consciousness: oriented to person, oriented to place and oriented to time HENMT: Head: normal to inspection Resp: Effort & Inspection: normal respiratory effort Cardio: Rate: regular rate Rhythm: regular rhythm Heart sounds: S1 normal heart sound present and S2 normal heart sound present GI: Inspection: normal to inspection and incision (Wounds are clean dry and i ntact) DS: Data Data Completed and Pending Pending studies at discharge: Pending at discharge 02/02/25 08:05 Surgical [PTH] Routine Labs on day of discharge: Labs from last 24 hours 02/02/25 02/02/25 06:55 06:24 WBC 7.3 RBC 4.89 Hgb 12.1 Hct 39.6 MCV 81.0 MCH 24.7 L MCHC 30.6 L RDW 15.6 H Plt Count 305 MPV 9.8 Immature Gran % (Auto) 0.7 H Neut % (Auto) 66.1 Lymph % (Auto) 25.0 [place] % (Auto) 6.6 Eos % (Auto) 1.2 Baso % (Auto) 0.4 Lymph # (Auto) 1.81 [place] # (Auto) 0.5 Eos # (Auto) 0.1 Baso # (Auto) 0.0 Abs Immat Gran (auto) 0.05 H Absolute Neuts (auto) 4.8 Absolute Nucleated RBC 0.000 Nucleated RBC % 0.0 POC Urine HCG, Qual Negative Blood Type A Positive Antibody Screen Negative Discharge Plan Discharge Patient Disposition: Home Patient Language: Filipino Stand Alone Forms: General Discharge Instructions Follow-up/Referrals: Jose Spears MD [Physician, [employer] MACHINE OPERATOR] Discharge Medications: New hydrocodone-acetaminophen 5-325 mg tablet 1 tablet PO Q4H PRN (Reason: pain) Qty: 20 0RF Continued spironolactone 50 mg tablet 50 mg PO DAILY
[2025-02-02] MEDS: fentaNYL CITRATE INJ (*CRX) 100 MCG/2 ML VIAL 25 MCG IV PUSH ×3 (09:27→09:55)
--- NOTE | 2025-02-02 10:20 | SUR.PHASEI ---
1011: This RN tried to call report but floor RN was unavailable.
--- NOTE | 2025-02-02 10:53 | PC.NURSE ---
This patient, Estefany Curtis, was received from PACU on 02/02/25 at 1053. Patient/family oriented to unit policies and routines
[2025-02-02] MEDS: KETOROLAC 30 MG/ML VIAL (*BKC) IV PUSH ×2 (12:23→18:44)
[2025-02-02] MEDS: SIMETHICONE 80 MG TAB.CHEW PO ×2 (12:25→18:44)
[2025-02-02] MEDS: DOCUSATE SODIUM 100 MG CAPSULE PO ×2 (12:26→18:43)
[2025-02-03 00:35] VITALS: BP 113/73; PULSE 84; RESP 16; TEMP 36.4; O2SAT 97
[2025-02-03] MEDS: KETOROLAC 30 MG/ML VIAL (*BKC) IV PUSH (00:37)
[2025-02-03] MEDS: ACETAMINOPHEN 500 MG TABLET 1000 MG PO ×2 (00:37→06:48)
[2025-02-03 03:45] VITALS: BP 112/76; PULSE 91; RESP 16; TEMP 36.4; O2SAT 100
[2025-02-03 04:04] LABS: Hematocrit 35.8 % (37.0-47.0); Hemoglobin 11.0 g/dL (12.0-15.0); Immature Granulocyte Percent A 0.6 % (0-0.5); Lymphocytes Absolute Auto 1.28 K/mm3 (0.9-3.2); Mean Corpuscular HGB Conc 30.7 g/dl (32-36); Mean Corpuscular Hemoglobin 24.9 pg (26-34); Mean Corpuscular Volume 81.2 fl (80-100); Nucleated Red Blood Cells Absolute Auto 0.000 K/mm3 (0.0-0.012); Nucleated Red Blood Cells Perc 0.0 % (0.0-0.2); Platelet Count Result 333 k/mm3 (150-375); Red Blood Count 4.41 M/mm3 (4.2-5.4); White Blood Count 15.4 K/mm3 (4.5-10.0)
[2025-02-03] MEDS: ENOXAPARIN 40 MG/0.4 ML SYRINGE SUB-Q (06:47)
[2025-02-03] MEDS: DOCUSATE SODIUM 100 MG CAPSULE PO (06:48)
[2025-02-03] MEDS: SIMETHICONE 80 MG TAB.CHEW PO (06:48)
[2025-02-03] MEDS: IBUPROFEN 600 MG TABLET PO (06:48)
[2025-02-03 08:23] VITALS: BP 120/51; PULSE 78; RESP 16; TEMP 36.4; O2SAT 96
--- NOTE | 2025-02-03 08:52 | P.PNAN_ITS ---
Anes - Prog Note Post-Op Date/Time: 02/03/25 08:52 Cardiovascular status: normal Respiratory status: normal Airway patency: baseline Mental status: baseline Post-Op hydration status: normal Vital Signs: Last Vital Signs Temp 97.6 F 02/03/25 08:23 Pulse 78 02/03/25 08:23 Resp 16 02/03/25 08:23 BP 120/51 L 02/03/25 08:23 Pulse Ox 96 02/03/25 08:23 O2 Del Method Room Air 02/03/25 03:45 O2 Flow Rate 1.0 02/02/25 21:30 Pain Score (VAS): 6 I/O: Intake & Output 02/02/25 02/03/25 02/03/25 23:59 07:59 15:59 Intake Total 1920 720 Output Total 950 Balance 970 720 Laboratory Tests 02/03/25 03:47 02/03/25 03:47 WBC 15.4 H RBC 4.41 Hgb 11.0 L Hct 35.8 L MCV 81.2 MCH 24.9 L MCHC 30.7 L RDW 15.5 H Plt Count 333 MPV 9.6 Immature Gran % (Auto) 0.6 H Neut % (Auto) 87.3 H Lymph % (Auto) 8.3 L [place] % (Auto) 3.7 Eos % (Auto) 0.0 Baso % (Auto) 0.1 L Lymph # (Auto) 1.28 [place] # (Auto) 0.6 Eos # (Auto) 0.0 Baso # (Auto) 0.0 Abs Immat Gran (auto) 0.09 H Absolute Neuts (auto) 13.5 H Absolute Nucleated RBC 0.000 Nucleated RBC % 0.0 Post-procedural complaints: none Patient Feedback: Patient satisfied with anesthetic care. pt rating pain 5-6 but insistent she does not wish to receive narcotics for pain management. states she is satisfied with the relief from the non narcotic meds she is receiving
--- NOTE | 2025-02-03 10:10 | P.PNOB_ITS ---
VENDING STAND SUPERVISOR - A/P Postoperative Procedures: Procedures Operation Date: 02/02/25 07:30 Actual Procedure Side Surgeon p Robotic Assisted Total Vaginal Hysterectomy with Bilateral Salpingectomy Bilateral Jose Pollack MD Postoperative day: 1 Postoperative status: doing well Postoperative plan: routine post-op care, discharge and other (rec iron for 6 wks) Time Spent With Patient Time: Total time spent is greater than 50% in coordination of care (as documented) at patient's floor/unit and/or counseling patient: Time with patient: less than 15 minutes VENDING STAND SUPERVISOR- PN:Subj Post-Op Subjective Date/time seen: 02/03/25 10:10 Subjective: patient has no complaints, pain is well controlled and patient is tolerating oral intake Exam 2 Narrative: incisions c/d/i abdomen soft, nt, nd VENDING STAND SUPERVISOR - PN: Obj Data Vital Signs Vital Signs: Vital Signs - 24 hr 02/02/25 10:15 02/02/25 10:30 02/02/25 10:55 Temperature 98.8 F Pulse Rate 96 95 96 Respiratory Rate 20 22 H 16 Blood Pressure 139/84 145/92 H 130/69 Pulse Oximetry 93 92 94 Oxygen Delivery Nasal Cannula Nasal Cannula Oxygen Flow Rate 5 5 02/02/25 11:00 02/02/25 16:00 02/02/25 16:00 Temperature 97.3 F L Pulse Rate 104 H Respiratory Rate 16 Blood Pressure 119/62 Pulse Oximetry 95 96 96 Oxygen Delivery Nasal Cannula Nasal Cannula Oxygen Flow Rate 4.0 3.0 02/02/25 19:40 02/02/25 19:40 02/02/25 20:20 Temperature 98.1 F Pulse Rate 92 Respiratory Rate 16 Blood Pressure 124/58 L Pulse Oximetry 100 100 99 Oxygen Delivery Nasal Cannula Nasal Cannula Oxygen Flow Rate 3.0 2.0 02/02/25 21:30 02/02/25 23:00 02/03/25 00:35 Temperature 97.5 F L Pulse Rate 84 Respiratory Rate 16 Blood Pressure 113/73 Pulse Oximetry 97 97 97 Oxygen Delivery Nasal Cannula Room Air Oxygen Flow Rate 1.0 02/03/25 00:35 02/03/25 03:45 02/03/25 03:45 Temperature 97.6 F Pulse Rate 91 Respiratory Rate 16 Blood Pressure 112/76 Pulse Oximetry 97 100 100 Oxygen Delivery Room Air Room Air Oxygen Flow Rate 02/03/25 08:23 Temperature 97.6 F Pulse Rate 78 Respiratory Rate 16 Blood Pressure 120/51 L Pulse Oximetry 96 Oxygen Delivery Oxygen Flow Rate Intake/Output Intake/Output: Intake & Output 01/31/25 02/01/25 02/02/25 02/03/25 23:59 23:59 23:59 23:59 Intake Total 3020 720 Output Total 1070 Balance 1950 720 Meds/Results Medications: Active Medications Generic Name Dose Route Start Last Admin Trade Name Freq PRN Reason Stop Dose Admin Acetaminophen 1,000 mg 02/02/25 12:00 02/03/25 06:48 Acetaminophen 500 Mg Tablet PO 1,000 mg Q6HR JUSTICE Administration Docusate Sodium 100 mg 02/02/25 10:46 02/03/25 06:48 Docusate Sodium 100 Mg Capsule PO 100 mg BID JUSTICE Administration Enoxaparin Sodium 40 mg 02/02/25 10:46 02/03/25 06:47 Enoxaparin 40 Mg/0.4 Ml Syringe SUB-Q 40 mg DAILY JUSTICE Administration Ibuprofen 600 mg 02/03/25 06:00 02/03/25 06:48 Ibuprofen 600 Mg Tablet PO 600 mg Q6HR JUSTICE Administration Naloxone HCl 0.1 mg 02/02/25 10:46 Naloxone Hcl 0.4 Mg/Ml Vial IV PUSH Q2M PRN Respiratory rate less than 10 Ondansetron HCl 4 mg 02/02/25 10:46 Ondansetron Inj 4 Mg/2 Ml Vial IV PUSH Q6H PRN Nausea And Vomiting Oxycodone HCl 5 mg 02/02/25 10:46 Oxycodone Hcl (*Crx) 5 Mg Tab Ir PO Q4H PRN Pain Rated 4-6 Oxycodone HCl 10 mg 02/02/25 10:46 Oxycodone Hcl (*Crx) 5 Mg Tab Ir PO Q6H PRN Pain Rated 7-10 Simethicone 80 mg 02/02/25 12:00 02/03/25 06:48 Simethicone 80 Mg Tab.Chew PO 80 mg TIDWM JUSTICE Administration Labs 02/03/25 03:47 Labs: Laboratory Results - last 24 hr 02/03/25 03:47 WBC 15.4 H RBC 4.41 Hgb 11.0 L Hct 35.8 L MCV 81.2 MCH 24.9 L MCHC 30.7 L RDW 15.5 H Plt Count 333 MPV 9.6 Immature Gran % (Auto) 0.6 H Neut % (Auto) 87.3 H Lymph % (Auto) 8.3 L [place] % (Auto) 3.7 Eos % (Auto) 0.0 Baso % (Auto) 0.1 L Lymph # (Auto) 1.28 [place] # (Auto) 0.6 Eos # (Auto) 0.0 Baso # (Auto) 0.0 Abs Immat Gran (auto) 0.09 H Absolute Neuts (auto) 13.5 H Absolute Nucleated RBC 0.000 Nucleated RBC % 0.0
== END 2025-02-03 10:43 | disposition home or self-care (01) ==
LOC: ANHSURGERY 06:47 → ANHOB2 10:51
PROVIDERS: Visit Provider Obstetrics & Gynecology
PROC: (CPT 58552; principal; 2025-02-02 07:30)
DX: N80.351 Endometriosis of the right pelvic sidewall, unspecified depth (principal); F41.9 Anxiety disorder, unspecified; F31.9 Bipolar disorder, unspecified; E66.01 Morbid (severe) obesity due to excess calories; Z68.41 Body mass index [BMI] 40.0-44.9, adult; Z87.891 Personal history of nicotine dependence
CPT/HCPCS: 58552; 58662; S2900; 36415; 85025; 86850; 86900; 86901; 88307; 99199; A9270; J0690; J1100; J1171; J1650; J1885; J2003; J2250; J2405; J2704; J3010; J7120